=== PATIENT | male | born 1995 | race American Indian/Alaskan Native ===

== ENCOUNTER 2022-06-17 23:10 | Emergency (ER) | payer BC, SELFPAY ==
--- NOTE | 2022-06-17 23:14 | ED.GENADULT ---
HPI - General Adult General Time Seen by Provider: 23:14 Date Seen: 06/17/22 Chief complaint: Dental/Oral/Mouth Injury/Pain Stated complaint: Tooth pain, extraction on Thur Time Seen by Provider: 06/17/22 23:13 Source: patient and RN notes reviewed Mode of arrival: ambulatory Limitations: no limitations History of Present Illness HPI narrative: Patient presents with toothache. Patient has a broken tooth for which he is going to the dentist this week. However, pain is gotten worse in the last couple days. Pain with eating. He has taken Naprosyn and used Orajel for this. No fevers or chills, no swelling. Related Data Allergies Allergy/AdvReac Type Severity Reaction Status Date / Time No Known Drug Allergies Allergy Verified 06/17/22 23:17 Review of Systems Status of ROS: Reports: 10 or more systems reviewed and unremarkable except as noted in History and below PFSH PFSH Social History Smoking Status: Light tobacco smoker What tobacco products do you use: cigarettes Do you use any of these nicotine containing products: None Second hand tobacco smoke exposure: No How often do you have a drink containing alcohol: never How often do you have six or more drinks on one occasion: Never AUDIT-C Alcohol total score: 0 Non-prescribed substance use: marijuana (any form) service: No Exam Narrative: Exam Narrative: General: well nourished , NAD Head: Atraumatic and normocephalic ENT: External ears and external nose are normal. Fracture of the right upper molar with tenderness, no surrounding gingival erythema or swelling Eyes: Conjunctiva clear, pupils are equal reactive, external ocular motions are intact Neck: Full spontaneous range of motion of the neck Lungs: No respiratory distress Musculoskeletal: No tenderness or deformity Neurologic: No gross focal neurologic deficits Skin: No rashes Psych: Mood and affect are appropriate Const: Vital Signs, click to edit/add: Vital Signs - 24 hr 06/17/22 23:20 Temperature 98.0 F Pulse Rate [Pulse Oximeter] 77 Respiratory Rate 16 Blood Pressure [Le ft Upper Arm] 136/90 H Pulse Oximetry 97 Oxygen Delivery Me thod Room Air Course Course Hospital Course: Patient seen examined, prior records are reviewed. Patient with a painful tooth, obvious dental fracture without indications of infection. Dental block and patient will be discharged with medication to help with pain, has an appointment with the dentist in 3 days. Supraperiosteal block, right upper molar. Risks and benefits discussed with patient, verbal consent was obtained. Landmarks were identified an a 27 gauge needle was introduced at the gingival reflection at the base of the 1st right upper molar. A mix of Marcaine 0.25% with lidocaine 1% with epinephrine was injected, 2 mL total. Patient noted improvement of his pain. Discussed medications and follow-up. Vital Signs Vital signs: Initial Vital Signs Temperature 98.0 F 06/17/22 23:20 Temperature Source Temporal Artery Scan 06/17/22 23:20 Pulse Rate 77 06/17/22 23:20 Respiratory Rate 16 06/17/22 23:20 Blood Pressure 136/90 H 06/17/22 23:20 Blood Pressure Mean 105 06/17/22 23:20 Pulse Oximetry 97 06/17/22 23:20 Oxygen Delivery Method 06/17/22 23:20 Vital Signs Temperature 98.0 F 06/17/22 23:20 Pulse Rate 77 06/17/22 23:20 Respiratory Rate 16 06/17/22 23:20 Blood Pressure 136/90 H 06/17/22 23:20 Pulse Oximetry 97 06/17/22 23:20 Oxygen Delivery Method 06/17/22 23:20 Temperature 98.0 F 06/17/22 23:20 Pulse Rate 77 06/17/22 23:20 Respiratory Rate 16 06/17/22 23:20 Blood Pressure 136/90 H 06/17/22 23:20 Pulse Oximetry 97 06/17/22 23:20 Oxygen Delivery Method 06/17/22 23:20 Medical Decision Making Medical Records Medical records reviewed: Yes I reviewed the patient's medical records Lab Data Lab results reviewed: Yes I reviewed the patient's lab results Discharge Plan Discharge Clinical Impression: Toothache Patient Disposition: Home, Self-Care Condition: Stable Instructions: Toothache (ED) Additional Instructions: Take medications for pain as prescribed. Do not take additional NSAIDs such as ibuprofen or Naprosyn/naproxen. Salt water gargle daily. Take antibiotic as prescribed until you follow-up with a dentist. Soft or liquid diet to help with pain. Activity Level: No Restrictions Stand Alone Forms: [employer] Info Instructions
[2022-06-17 23:20] VITALS: BP 136/90; PULSE 77; RESP 16; TEMP 36.7; O2SAT 97; BMI 27.5
== END 2022-06-18 00:03 | disposition home or self-care (01) ==
PROVIDERS: Emergency Provider Family Medicine; PCP Family Medicine
DX: K05.10 Chronic gingivitis, plaque induced (principal); R68.84 Jaw pain
CPT/HCPCS: 64450; 99283

== ENCOUNTER 2022-09-27 19:44 | Emergency (ER) | payer OTHER, SELFPAY ==
[2022-09-27 19:52] VITALS: BP 132/78; PULSE 68; RESP 18; TEMP 36.7; O2SAT 99; BMI 27.5
--- NOTE | 2022-09-27 20:12 | ED.GENADULT ---
HPI - General Adult General Time Seen by Provider: 20:12 Date Seen: 09/27/22 Chief complaint: Dental/Oral/Mouth Injury/Pain Stated complaint: Left side of gums bleeding Time Seen by Provider: 09/27/22 20:08 Source: patient, RN notes reviewed and old records reviewed Mode of arrival: ambulatory Limitations: no limitations History of Present Illness HPI narrative: Patient presents today with concern of bleeding between teeth in the left lower jaw. He reports little bit of pain last night, none today then this evening had a little more pain and noticed some bleeding. Does not think he has any swelling, has not taken anything for this. Does not take blood thinners has not noticed any other easy bleeding or bruising. Related Data Home Medications Medication Instructions Recorded Confirmed venlafaxine 150 mg 150 mg PO QPM 09/27/22 09/27/22 capsule,extended release 24 hr Previous Rx's Medication Instructions Recorded chlorhexidine gluconate 0.12 % 15 ml buccal BID #473 mL 09/27/22 mouthwash (Periogard) Allergies Allergy/AdvReac Type Severity Reaction Status Date / Time No Known Drug Allergies Allergy Verified 09/27/22 19:54 PFSH PFSH Social History Smoking Status: Light tobacco smoker What tobacco products do you use: cigarettes Do you use any of these nicotine containing products: None Second hand tobacco smoke exposure: No How often do you have a drink containing alcohol: never How often do you have six or more drinks on one occasion: Never AUDIT-C Alcohol total score: 0 Non-prescribed substance use: marijuana (any form) service: No Exam Narrative: Exam Narrative: General: well nourished , NAD Head: Atraumatic and normocephalic ENT: In lower jaw prior extraction of tooth 32 and 18. Gingival irritation around tooth 19 and 20 with plaque on 19, no active bleeding. Eyes: Conjunctiva clear, pupils are equal reactive, external ocular motions are intact Neck: Full spontaneous range of motion of the neck Lungs: No respiratory distress Musculoskeletal: No tenderness or deformity Neurologic: No gross focal neurologic deficits Skin: No rashes Psych: Mood and affect are appropriate Const: Vital Signs, click to edit/add: Vital Signs - 24 hr 09/27/22 19:52 Temperature 98.0 F Pulse Rate [Right Pulse Oximeter] 68 Respiratory Rate 18 Blood Pressure [Ri ght Upper Arm] 132/78 Pulse Oximetry 99 Oxygen Delivery Me thod Room Air Course Course Hospital Course: Patient presents today with bleeding from the gums. On exam he has some inflammation of the gingiva but no swelling or flocculence to suggest abscess. Will be started on Precedex swish and spit and can be discharged. Follow-up with dentist next week. Vital Signs Vital signs: Initial Vital Signs Temperature 98.0 F 09/27/22 19:52 Temperature Source Temporal Artery Scan 09/27/22 19:52 Pulse Rate 68 09/27/22 19:52 Respiratory Rate 18 09/27/22 19:52 Blood Pressure 132/78 09/27/22 19:52 Blood Pressure Mean 96 09/27/22 19:52 Blood Pressure Position Sitting 09/27/22 19:52 Pulse Oximetry 99 09/27/22 19:52 Oxygen Delivery Method Room Air 09/27/22 19:52 Vital Signs Temperature 98.0 F 09/27/22 19:52 Pulse Rate 68 09/27/22 19:52 Respiratory Rate 18 09/27/22 19:52 Blood Pressure 132/78 09/27/22 19:52 Pulse Oximetry 99 09/27/22 19:52 Oxygen Delivery Method Room Air 09/27/22 19:52 Temperature 98.0 F 09/27/22 19:52 Pulse Rate 68 09/27/22 19:52 Respiratory Rate 18 09/27/22 19:52 Blood Pressure 132/78 09/27/22 19:52 Pulse Oximetry 99 09/27/22 19:52 Oxygen Delivery Method Room Air 09/27/22 19:52 Discharge Plan Discharge Clinical Impression: Gingivitis Patient Disposition: Home, Self-Care Condition: Stable Instructions: Gingivitis (ED) Additional Instructions: [place] gently twice a day. Rinse and spit with ice cold water to help stop bleeding. Use Precedex as prescribed. Soft diet for 24 hours Prescriptions: New chlorhexidine gluconate [Periogard] 0.12 % mouthwash 15 ml buccal BID Qty: 473 0RF No Action venlafaxine 150 mg capsule,extended release 24hr 150 mg PO QPM Follow Up/Referrals: Hailey Barry MD [Primary Care Provider] - Stand Alone Forms: [facility] Info Inst[facility]
[2022-09-27 21:00] VITALS: TEMP 36.7
[2022-09-27] MEDS: KETOROLAC 30 MG/ML inj IM (21:00)
[2022-09-27 21:20] VITALS: BP 120/74; PULSE 71; RESP 18; TEMP 36.7; O2SAT 99
== END 2022-09-27 21:20 | disposition home or self-care (01) ==
LOC: ED 20:33
PROVIDERS: Emergency Provider Family Medicine; PCP Family Medicine
DX: K05.10 Chronic gingivitis, plaque induced (principal)
CPT/HCPCS: 64400; 96372; 99283; J1885

== ENCOUNTER 2023-03-21 11:06 | Emergency (ER) | payer OTHER, SELFPAY ==
[2023-03-21 11:29] VITALS: BP 110/70; PULSE 72; RESP 18; TEMP 36.4; O2SAT 98
[2023-03-21 12:23] LABS: PCR FLU A POSITIVE PCR FLU A (Negative); PCR FLU B Negative PCR FLU B (Negative); PCR RSV Negative PCR RSV (Negative); SARS PCR* Negative SARS-CoV-2 (Negative)
--- NOTE | 2023-03-21 12:58 | ED_ITS ---
HPI - General Adult General Time Seen by Provider: 12:58 Date Seen: 03/21/23 Chief complaint: Cough Stated complaint: Cough, body aches, fever, lethargy Time Seen by Provider: 03/21/23 12:29 Source: patient Mode of arrival: ambulatory Limitations: no limitations History of Present Illness HPI narrative: 27-year-old male who comes in today with concern for possible COVID. Symptoms for 4 days, describes cough, sinus congestion, body aches, fatigue, chills, nausea vomiting. Has not been taking anything for this. No known ill contacts. Denies breathing difficulty. Related Data Home Medications Medication Instructions Recorded Confirmed venlafaxine 150 mg 150 mg PO QPM 09/27/22 09/27/22 capsule,extended release 24 hr Previous Rx's Medication Instructions Recorded chlorhexidine gluconate 0.12 % 15 ml buccal BID #473 mL 09/27/22 mouthwash (Periogard) Allergies Allergy/AdvReac Type Severity Reaction Status Date / Time No Known Drug Allergies Allergy Verified 09/27/22 19:54 PFSH [facility] Medical History (Updated 03/21/23 @ 13:00 by Luis Eduardo Feliz MD) Depression ?F32.A - Depression, unspecified (ICD-10) Surgical History (Updated 09/27/22 @ 21:49 by Sj James RN) No significant past surgical history Social History Smoking Status: Light tobacco smoker What tobacco products do you use: cigarettes Do you use any of these nicotine containing products: None Second hand tobacco smoke exposure: No How often do you have a drink containing alcohol: never How often do you have six or more drinks on one occasion: Never AUDIT-C Alcohol total score: 0 Non-prescribed substance use: marijuana (any form) service: No Exam Narrative: Exam Narrative: General: Well-developed and well-nourished, no acute distress Head: Atraumatic and normocephalic Eyes: Pupils are equal reactive, extraocular motions intact, conjunctiva clear ENT: External nose and ears are normal, posterior pharynx without erythema or exudate Neck: No midline cervical tenderness, full spontaneous range of motion the neck, trachea midline, no adenopathy Heart: Regular rate and rhythm no murmurs or thrills Lungs: Clear to auscultation bilaterally without wheezes or crackles Abdomen: Soft, nontender, nondistended with active bowel sounds Musculoskeletal: No tenderness, deformity, or edema Neurologic: Awake, alert, and oriented x3, no gross focal neurologic deficits, cranial nerves intact as tested Psych: Mood and affect are appropriate Skin: No rashes Const: Vital Signs, click to edit/add: Vital Signs - 24 hr 03/21/23 11:29 Temperature 97.5 F L Pulse Rate [Pulse Oximeter] 72 Respiratory Rate 18 Blood Pressure [Ri ght Upper Arm] 110/70 Pulse Oximetry 98 Oxygen Delivery Me thod Room Air Course Course ED Course: Patient seen examined, prior records reviewed. Patient presents today with upper respiratory symptoms for the last 4 days, influenza test independently ordered and interpreted by me positive. COVID negative. Patient is stable for discharge with continue symptom management. Vital Signs Vital signs: Initial Vital Signs Temperature 97.5 F L 03/21/23 11:29 Temperature Source Temporal Artery Scan 03/21/23 11:29 Pulse Rate 72 03/21/23 11:29 Respiratory Rate 18 03/21/23 11:29 Blood Pressure 110/70 03/21/23 11:29 Blood Pressure Mean 83 03/21/23 11:29 Blood Pressure Position Sitting 03/21/23 11:29 Pulse Oximetry 98 03/21/23 11:29 Oxygen Delivery Method Room Air 03/21/23 11:29 Vital Signs Temperature 97.5 F L 03/21/23 11:29 Pulse Rate 72 03/21/23 11:29 Respiratory Rate 18 03/21/23 11:29 Blood Pressure 110/70 03/21/23 11:29 Pulse Oximetry 98 03/21/23 11:29 Oxygen Delivery Method Room Air 03/21/23 11:29 Temperature 97.5 F L 03/21/23 11:29 Pulse Rate 72 03/21/23 11:29 Respiratory Rate 18 03/21/23 11:29 Blood Pressure 110/70 03/21/23 11:29 Pulse Oximetry 98 03/21/23 11:29 Oxygen Delivery Method Room Air 03/21/23 11:29 Medical Decision Making Lab Data Labs: Lab Results 03/21/23 Range/Units 11:33 SARS-CoV-2 (PCR) Negative SARS-CoV-2 (Negative) Influenza Type A (PCR) POSITIVE PCR FLU A A (Negative) Influenza Type B (PCR) Negative PCR FLU B (Negative) RSV (PCR) Negative PCR RSV (Negative) Discharge Plan Discharge Clinical Impression: Influenza A Patient Disposition: Home, Self-Care Condition: Stable Instructions: Influenza (DC) Additional Instructions: Tylenol and ibuprofen as needed for fever and body aches. Lots of fluids and rest Activity Level: No Restrictions Discharge Diet: Regular Prescriptions: No Action venlafaxine 150 mg capsule,extended release 24hr 150 mg PO QPM chlorhexidine gluconate [Periogard] 0.12 % mouthwash 15 ml buccal BID Qty: 473 0RF Follow Up/Referrals: Hailey Barry MD [Primary Care Provider] - Stand Alone Forms: [employer] Info Instructions
== END 2023-03-21 13:06 | disposition home or self-care (01) ==
LOC: ED 13:04
PROVIDERS: Emergency Provider Family Medicine; PCP Family Medicine
DX: J09.X2 Influenza due to identified novel influenza A virus with other respiratory manifestations (principal)
CPT/HCPCS: 87631; 99283